=== PATIENT | male | born 1995 | race Caucasian/White ===

== ENCOUNTER 2019-02-24 10:28 | Emergency (ER) | payer OTHER ==
[2019-02-24 10:34] VITALS: BP 137/74
[2019-02-24] MEDS ORDERED: CHERRY SYRUP 10 ML UDC PO ONE (11:14)
[2019-02-24] MEDS ORDERED: DEXAMETHASONE 10 MG/ML VIAL PO STA (11:14)
--- NOTE | 2019-02-24 11:20 | ED Physician Documentation ---
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 He states he has been having increased anxiety over the past few months. He states that most of his anxiety is regarding cancer for multiple health concerns. He states that he has been seen by multiple doctors and tests have all been negative. He states that he has had a sore throat the past few days and was diagnosed with strep pharyngitis and started on antibiotics. He states that he is concerned that this could be cancer as well. He also states that sometimes he feels a slight burning when he takes a deep breath. He is not coughing. No wheezing. He states that whenever he feels an ache or pain he is concerned about cancer. Review of Systems Constitutional: denies: Fever, Chills Throat: reports: Sore throat Respiratory: denies: Cough GI: denies: Nausea, Vomiting, Diarrhea : denies: Dysuria, Frequency, Hesitancy Skin: denies: Rash Musculoskeletal: denies: Neck pain, Back pain Neurologic: denies: Headache PD PAST MEDICAL HISTORY - Past Medical History Past Medical History: No - Past Surgical History Past Surgical History: No - Allergies Allergies/Adverse Reactions: Allergies Allergy/AdvReac Type Severity Reaction Status Date / Time amoxicillin Allergy Rash Verified 02/24/19 10:34 Penicillins Allergy Rash Verified 02/24/19 10:34 - Living Situation Living Situation: reports: With family Living Arrangement: reports: At home - Social History Does the pt smoke?: No Does the pt have substance abuse?: No - Family History Family history: reports: Non contributory - Immunizations Immunizations are current?: Yes PD ED PE NORMAL - Vitals Vital signs reviewed: Yes - General General: Alert and oriented X 3, No acute distress - HEENT HEENT: PERRL, Ears normal, Moist mucous membranes, Other (Mild posterior pharyngeal erythema without tonsillar exudates. Uvula midline. Normal phonation. No trismus.) - Neck Neck: Supple, no meningeal sign, No adenopathy - Cardiac Cardiac: RRR, Strong equal pulses - Respiratory Respiratory: No respiratory distress, Clear bilaterally - Abdomen Abdomen: Soft, Non tender, Non distended - Derm Derm: Warm and dry, No rash - Neuro Neuro: Alert and oriented X 3 - Psych Psych: Normal mood, Normal affect Results - Vitals Vitals: Vital Signs - 24 hr 02/24/19 10:31 Temperature 36.4 C L Heart Rate 81 Respiratory 19 Rate Blood Pressure 137/74 H O2 Saturation 99 Oxygen O2 Source Room air PD MEDICAL DECISION MAKING - ED course Complexity details: considered differential, d/w patient ED course: Patient with mainly anxiety today. Given a dose of dexamethasone for the strep pharyngitis he was diagnosed with yesterday. [place]. Not suicidal or homicidal. Patient counseled regarding signs and symptoms for which I believe and urgent re- evaluation would be necessary. Patient with good understanding of and agreement to plan and is comfortable going home at this time This document was made in part using voice recognition software. While efforts are made to proofread this document, sound alike and grammatical errors may occur. Departure - Departure Disposition: 01 Home, Self Care Clinical Impression: Anxiety, Strep pharyngitis Condition: Good Instructions: Generalized Anxiety Disorder, ED Strep Pharyngitis Poss Follow-Up: Your,doctor in 1 week [Other] Comments: Make sure to follow-up with your doctor next week about your anxiety. Return if you worsen. Take all your antibiotics until gone. Discharge Date/Time: 02/24/19 11:25
== END 2019-02-24 11:25 | disposition home or self-care (01) ==
LOC: ED 10:28
DX: F41.9 Anxiety disorder, unspecified (principal); J02.0 Streptococcal pharyngitis
CPT/HCPCS: 99282; 99284; A9270